=== PATIENT | male | born 1960 | race Caucasian/White ===

== ENCOUNTER 2019-11-25 06:17 | Inpatient (IN) ==
[2019-11-25] MEDS ORDERED: CeFAZolin Syr 2,000MG/20 ML 2,000 MG/20 ML SYRINGE IVPB ONE (06:39)
[2019-11-25] MEDS ORDERED: Ondansetron 4 MG/2 ML VIAL IVP ONE (06:50)
[2019-11-25] MEDS ORDERED: *HR* HYDROmorphone PF 0.5 MG/0.5 ML SYRINGE IVP PRN (06:50)
[2019-11-25] MEDS ORDERED: Ringers Solution, Lactated 1,000 ML IVC SCH (07:00)
[2019-11-25] MEDS ORDERED: *HR* FentaNYL (PF) 100 MCG/2 ML VIAL ONE ×2 (07:05→12:07)
[2019-11-25] MEDS ORDERED: *HR* Midazolam HCl 2 MG/2 ML VIAL ONE (07:05)
[2019-11-25] MEDS ORDERED: *HR* Propofol 200 MG/20 ML VIAL IVP ONE ×2 (07:05→07:06)
[2019-11-25] MEDS: Ringers Solution, Lactated 1,000 ML IVC SCH ×2 (07:20→12:04)
[2019-11-25] MEDS ORDERED: *HR* Rocuronium Bromide 50 MG/5 ML VIAL ONE ×2 (08:07→08:34)
[2019-11-25] MEDS ORDERED: Lidocaine -MPF 2% 2 ML VIAL ONE ×2 (08:07→09:23)
[2019-11-25] MEDS ORDERED: *HR* Succinylcholine 200 MG/10 ML VIAL IVP ONE (08:07)
[2019-11-25] MEDS ORDERED: Dexamethasone 4 MG/ML VIAL ONE (08:07)
[2019-11-25] MEDS ORDERED: Lidocaine HCL 4 ML Topical Solution (Laryng-O-Jet Kit Sterile Pak) TP ONE (08:07)
[2019-11-25] MEDS ORDERED: Ondansetron 4 MG/2 ML VIAL ONE (08:07)
[2019-11-25] MEDS ORDERED: *HR* HYDROMORPHONE 2 MG/ML VIAL ONE (08:25)
[2019-11-25] MEDS ORDERED: Ketorolac 30 MG/ML VIAL ONE (11:49)
[2019-11-25] MEDS ORDERED: Insulin Human Regular 6 UNIT in 0.9 % Sodium Chloride 10 ML IV ONE (12:45)
[2019-11-25] MEDS ORDERED: Naloxone 0.4 MG/ML INJ IVP PRN (14:37)
[2019-11-25] MEDS ORDERED: *HR* OxyCODONE/APAP 10/325 TABLET PO PRN (14:37)
[2019-11-25] MEDS ORDERED: D5% in Water 1,000 ML IVC PRN (14:37)
[2019-11-25] MEDS ORDERED: Ondansetron 4 MG/2 ML VIAL IVP PRN (14:37)
[2019-11-25] MEDS ORDERED: Dextrose Gel 15 GM/37.5 ML TUBE PO PRN ×2 (14:37)
[2019-11-25] MEDS ORDERED: *HR* Dextrose 50 % in Water (Vial) 50 ML VIAL IVP PRN (14:37)
[2019-11-25] MEDS ORDERED: Acetaminophen 325 MG TABLET PO PRN (14:37)
[2019-11-25] MEDS: CeFAZolin 2 GM/120 ML BAG IVPB SCH (18:05)
[2019-11-25] MEDS: *HR* Heparin 5,000 UNIT/ML VIAL SQ SCH (18:05)
[2019-11-25] MEDS: 0.9 % Sodium Chloride 1,000 ML IVC SCH (18:05)
[2019-11-25] MEDS: Insulin LISPRO 300 UNITS/3 ML VIAL SQ SCH ×2 (18:16→22:28)
[2019-11-26] MEDS: CeFAZolin 2 GM/120 ML BAG IVPB SCH (00:28)
[2019-11-26] MEDS: 0.9 % Sodium Chloride 1,000 ML IVC SCH ×4 (01:01→22:27)
[2019-11-26 01:49] LABS: Hematocrit 34.6 % (37.5-50.1); Mean Corpuscular HGB Conc 32.1 g/dL (31.6-35.5); Mean Corpuscular Hemoglobin 30.9 pg (28.0-33.3); Mean Corpuscular Volume 96.4 fL (83.0-100.0); Mean Platelet Volume 12.8 fL (9.4-12.4); Platelet Count 101 K/mcL (140-400); Red Blood Count 3.59 M/mcL (4.19-5.50); Red Cell Distribution Width 12.4 % (11.5-14.5)
[2019-11-26 01:56] LABS: Fibrinogen 494 mg/dL (169-393)
[2019-11-26 02:01] LABS: D-Dimer 1026 ng/mLFEU (0-500)
[2019-11-26 02:02] LABS: Hemoglobin 11.1 g/dL (12.9-16.9); White Blood Count 7.1 K/mcL (4.3-11.1)
[2019-11-26 02:11] LABS: Albumin 3.3 g/dL (3.5-5.7); Albumin/Globulin Ratio 1.4 (1.1-2.2); Bilirubin,Total 0.4 mg/dL (0.3-1.0); Calcium 7.8 mg/dL (8.6-10.3); Globulin 2.3 g/dL (2.4-3.5); Magnesium 2.1 mg/dL (1.6-2.6); Phosphorous 3.2 mg/dL (2.7-4.5); Potassium 4.6 mEq/L (3.5-5.1); Total Protein 5.6 g/dL (6.4-8.9)
[2019-11-26] MEDS: *HR* Heparin 5,000 UNIT/ML VIAL SQ SCH ×2 (06:31→17:14)
[2019-11-26] MEDS: Insulin LISPRO 300 UNITS/3 ML VIAL SQ SCH ×4 (10:14→22:05)
[2019-11-26] MEDS ORDERED: Dexamethasone 10 MG/ML VIAL IVP SCH (23:59)
[2019-11-27 03:05] LABS: Hematocrit 33.7 % (37.5-50.1); Hemoglobin 11.2 g/dL (12.9-16.9); Mean Corpuscular HGB Conc 33.2 g/dL (31.6-35.5); Mean Corpuscular Hemoglobin 31.6 pg (28.0-33.3); Mean Corpuscular Volume 95.2 fL (83.0-100.0); Platelet Count 128 K/mcL (140-400); Red Blood Count 3.54 M/mcL (4.19-5.50); Red Cell Distribution Width 12.4 % (11.5-14.5); White Blood Count 7.9 K/mcL (4.3-11.1)
[2019-11-27 03:44] LABS: BUN/Creatinine Ratio 16 (6-26); Blood Urea Nitrogen 21 mg/dL (6-20); Calcium 7.9 mg/dL (8.6-10.3); Carbon Dioxide 22 mEq/L (23-29); Chloride 108 mEq/L (98-107); Glucose 132 mg/dL (70-105); Osmolality,Calculated 289 (280-300); Sodium 137 mEq/L (136-145); eGFR For African Americans > 60 (> 60); eGFR For Non-African Americans 57 (> 60)
[2019-11-27] MEDS: *HR* Heparin 5,000 UNIT/ML VIAL SQ SCH (06:04)
[2019-11-27] MEDS: Insulin LISPRO 300 UNITS/3 ML VIAL SQ SCH (08:12)
[2019-11-27 13:35] VITALS: BP 156/96
== END 2019-11-27 15:01 | disposition home or self-care (01) | DRG 707 ==
LOC: SAMDAY 06:17 → 3ANU 14:26 → 2NENU 21:38
PROVIDERS: ADMIT Urology; ATTEND Urology